=== PATIENT | male | born 1970 | race Caucasian/White ===

== ENCOUNTER 2021-07-31 21:19 | Emergency (ER) | payer OTHER ==
[~2021-07-31] VITALS: Ht 167.6 cm; Wt 68.2 kg
[2021-07-31] MEDS ORDERED: PredniSONE 20 MG TABLET PO ONE (22:30)
[2021-07-31] MEDS ORDERED: GABAPENTIN 100 MG CAPSULE PO ONE (22:30)
[2021-07-31] MEDS ORDERED: KETOROLAC TROMETHAMINE 30 MG/ML VIAL IM ONE (22:30)
[2021-07-31 22:37] VITALS: BP 123/72
== END 2021-07-31 22:53 | disposition home or self-care (01) ==
LOC: EMS 21:24
DX: M54.12 Radiculopathy, cervical region (principal); G62.9 Polyneuropathy, unspecified; F17.210 Nicotine dependence, cigarettes, uncomplicated; F19.90 Other psychoactive substance use, unspecified, uncomplicated
CPT/HCPCS: 96372; 99283; J1885; J7512